=== PATIENT | male | born 1970 | race Caucasian/White ===

== ENCOUNTER 2016-07-15 22:07 | Emergency (ER) | payer BC, MEDICAID ==
[2016-07-15] MEDS ORDERED: KETOROLAC TROMETHAMINE 30 MG/ML VIAL IV ONE (23:39)
[2016-07-15] MEDS ORDERED: KETOROLAC TROMETHAMINE 30 MG/ML VIAL ONE (23:40)
--- NOTE | 2016-07-15 23:44 | ERNOTE ---
ER Male HPI Stated Complaint: TESTICULAR SWELLING/PAIN ER Male: testicular pain Time Seen by Provider: 07/15/16 23:28 Source: patient Exam Limitations: no limitations Immunizations: IMMUNIZATION HX Immunizations Up to Date Yes History of Influenza Vaccine No Hx Pneumococcal Vaccination Yes Allergies/Adverse Reactions: Allergies sulfacetamide Allergy (Severe, Verified 07/15/16 22:27) convulsions amoxicillin trihydrate [From Augmentin] Allergy (Mild, Verified 07/15/16 22:27) Vomiting benzoin Allergy (Mild, Verified 07/15/16 22:27) Hives potassium clavulanate [From Augmentin] Allergy (Mild, Verified 07/15/16 22:27) Vomiting cephalexin [Cephalexin] Adverse Reaction (Mild, Verified 07/15/16 22:27) rash clindamycin HCl [From Cleocin] Adverse Reaction (Mild, Verified 07/15/16 22:27) rash levofloxacin [From Levaquin] Adverse Reaction (Mild, Verified 07/15/16 22:27) rash Home Medications: HOME MEDICATIONS Venlafaxine HCl 150 mg PO HS 06/25/12 [Last Taken 12/11/13] rOPINIRole HCL [Requip] 0.5 mg PO HS 06/25/12 [Last Taken 12/11/13] Ascorbic Acid [Vitamin C] 500 mg PO DAILY 08/15/12 [Last Taken 12/11/13] Aspirin [Aspirin Enteric Coated] 81 mg PO DAILY #0 tablet. 08/18/13 [Last Taken 12/11/13] Cholecalciferol [Vitamin D] 1,000 unit PO DAILY 03/08/14 [Last Taken Unknown] Rosuvastatin Calcium [Crestor] 40 mg PO DAILY 04/06/14 [Last Taken Unknown] Diltiazem HCl [Cardizem Cd] 180 mg PO DAILY 10/04/15 [Last Taken Unknown] Clopidogrel Bisulfate [Plavix] 75 mg PO DAILY 11/10/15 [Last Taken Unknown] Nitroglycerin 0.4 mg SL PRN 11/10/15 [Last Taken Unknown] Acetaminophen [Tylenol] 1,000 mg PO QID PRN 07/15/16 [Last Taken 07/15/16 19:30] Azithromycin [Zithromax] 250 mg PO DAILY 07/15/16 [Last Taken Unknown] Enalapril Maleate [Vasotec] 5 mg PO 07/15/16 [Last Taken Unknown] Doxycycline Hyclate [Vibratab] 100 mg PO BID #20 tablet 07/16/16 [Last Taken Unknown] - History of Present Illness Narrative: Pt states he has had increasing right testicle pain for 2-3 days. He has previously had necrotizing fascitis in his groin and was concerned about this. He called his physician at the [facility] and has an appointment with them this week and was told if he had increasing pain or swelling he should be seen in the ED. Timing: Present: getting worse Quality: Present: moderate Onset Location: Present: scrotal - right Radiation: Present: suprapubic Activities at Onset: Present: none Prior Abdominal Problems: Present: similar symptoms Modifying Factors - (Improves): Present: analgesics - minimally Modifying Factors - (Worsens): Present: movement, palpation Review of Systems - Review of Systems Constitutional: Absent: recent illness EYE: Present: no symptoms reported ENT: Present: no symptoms reported Respiratory: Present: no symptoms reported Cardiology: Present: no symptoms reported Gastrointestinal/Abdominal: Present: See HPI, abdominal pain Genitourinary: Present: See HPI, pain Musculoskeletal: Present: no symptoms reported Skin: Present: no symptoms reported. Absent: rash Neurological: Present: no symptoms reported Endocrine: Present: no symptoms reported Hematologic/Lymphatic: Present: no symptoms reported Psych: Present: no symptoms reported - Patient's Past Medical History Patient History - Medical: Anxiety, Diabetes Type 2, Other Patient History - Cardiac/Respiratory: Coronary Heart Disease, Hypertension, Myocardial Infarction Patient History - Cancer: No Hx of Cancer Patient History - Surgical Procedures: Appendectomy, Cholecystectomy, Colonoscopy, Cardiac stent, Other - Family History Father Family History - Medical: Family History - Cardiac/Respiratory: Myocardial Infarction Mother Family History - Medical: No pertinent hx Family History - Cardiac/Respiratory: No pertinent hx - Social History Living Situations: home Smoking Status: Never smoker Alcohol Use: none Drug Use: none Physical Exam - Physical Exam General Appearance: Present: wd/wn, alert, no apparent distress Respiratory: Present: no respiratory distress, no accessory muscle use Gastrointestinal/Abdominal: Present: normal bowel sounds, tenderness - suprapubic. Absent: guarding, rebound Male Genitals Exam: Present: epididymal tenderness, other - mild erythema to the skin at the base of the penis, topical cream present. Absent: erythema - no obvious swelling Extremity Exam: Present: normal inspection Neurological Exam: Present: alert, oriented, normal mood/affect, no motor/ sensory deficits Skin Exam: Present: skin rash - base of the penis Lymphatic Exam: Absent: inguinal node (R), inguinal node (L) ED Progress - Results and Orders Patient's Lab Results:: I have reviewed the patient's lab results. Results and Orders: Laboratory Tests 07/15/16 07/15/16 07/15/16 23:45 23:45 23:45 WBC 7.0 Hgb 13.6 Hct 40.3 L Plt Count 237 ESR 14 H C-Reactive Prot, Quant Less than 0.2 Urine Color Urine Appearance Urine pH Ur Specific Marshall Urine Protein Urine Glucose (UA) Urine Ketones Urine Blood Urine Nitrate Urine Bilirubin Urine Urobilinogen Ur Leukocyte Esterase Urine RBC Urine WBC Ur Epithelial Cells Urine Bacteria 07/15/16 23:45 WBC Hgb Hct Plt Count ESR C-Reactive Prot, Quant Urine Color Yellow Urine Appearance Clear Urine pH 6.0 Ur Specific Marshall >=1.030 Urine Protein Negative Urine Glucose (UA) >=1000 H Urine Ketones Negative Urine Blood Negative Urine Nitrate Negative Urine Bilirubin Negative Urine Urobilinogen Normal Ur Leukocyte Esterase Negative Urine RBC None seen Urine WBC None seen Ur Epithelial Cells None seen Urine Bacteria None seen - Vital Signs Patient's Vital Signs:: I have reviewed the patient's vital signs. Vital Signs: Vital Signs 07/15/16 22:14 Temperature 36.8 C Pulse Rate 85 Respiratory 18 Rate Blood Pressure 117/73 O2 Sat by Pulse 96 Oximetry - CT/Ultrasound CT/Ultrasound Narrative: Right epididymal cyst. No torsion or other abnormalities. left testicle normal - Progress/Reassessment Chief Complaint: Genitourinary Problem Progress:: Improved Departure Clinical Impression: Epididymitis - Departure Disposition: Home self-care Condition: Good Instructions: Epididymitis Referrals: Med Henao MD [Primary Care Provider] - Prescriptions: Doxycycline Hyclate [Vibratab] 100 mg PO BID #20 tablet
[2016-07-15 23:50] LABS: Hematocrit 40.3 % (42.0-52.0); Hemoglobin 13.6 gm/dL (13.5-18.0); Mean Cell Volume 86.9 fl (78-100); Mean Corpuscular Hemoglobin 29.3 pg (27-31); Mean Corpuscular Hgb Conc 33.7 g/dl (32-36); Mean Platelet Volume 8.7 fl (6.0-9.5); Neutrophil # 4.1 K/mm3 (1.3-6.0); Neutrophil % 58.7 % (42-75.0); Platelet Count 237 K/mm3 (150-450); Red Blood Count 4.64 M/mm3 (4.7-6.0); Red Cell Distribution Width 12.9 % (11.5-14.0)
[2016-07-15 23:54] LABS: Urine Bilirubin Negative (NEGATIVE); Urine Blood Negative /ul (NEGATIVE); Urine Ketone Negative (NEGATIVE); Urine Nitrite Negative (NEGATIVE); Urine Protein Negative (NEGATIVE); Urine Specific Gravity >=1.030 SP.GR. (1.005-1.030); Urine Urobilinogen Normal (NORMAL)
[2016-07-16 00:05] LABS: Urine Appearance Clear; Urine Bacteria None Seen; Urine Color Yellow; Urine RBC None Seen /hpf (0-5); Urine WBC None Seen /hpf (0-5)
[2016-07-16] MEDS ORDERED: PROMETHAZINE HCL 12.5 MG in DEXTROSE 5 % IN WATER 50 ML IV ONE ×2 (01:14)
[2016-07-16] MEDS ORDERED: NALBUPHINE HCL 20 MG/ML AMPUL IV ONE (01:14)
[2016-07-16] MEDS ORDERED: NALBUPHINE HCL 20 MG/ML AMPUL ONE (01:17)
[2016-07-16] MEDS ORDERED: DEXTROSE 5% IV ONE ×2 (03:06)
[2016-07-16] MEDS ORDERED: WATER IV ONE ×2 (03:06)
[2016-07-16] MEDS ORDERED: CEFTRIAXONE SODIUM IV ONE ×2 (03:06)
[2016-07-16 03:51] VITALS: BP 126/69
== END 2016-07-16 03:49 | disposition home or self-care (01) ==
LOC: ER 22:07
DX: N45.1 Epididymitis (principal)

== ENCOUNTER 2016-12-17 12:40 | Emergency (ER) | payer BC, MEDICAID ==
[2016-12-17] MEDS ORDERED: MORPHINE SULFATE 4 MG/ML SYRG IM ONE (12:55)
[2016-12-17] MEDS ORDERED: MORPHINE SULFATE 4 MG/ML SYRG ONE (13:08)
[2016-12-17 13:10] LABS: Hematocrit 45.2 % (42.0-52.0); Hemoglobin 15.4 gm/dL (13.5-18.0); Mean Cell Volume 85.8 fl (78-100); Mean Corpuscular Hemoglobin 29.2 pg (27-31); Mean Corpuscular Hgb Conc 34.1 g/dl (32-36); Mean Platelet Volume 8.8 fl (6.0-9.5); Neutrophil # 6.1 K/mm3 (1.3-6.0); Neutrophil % 71.3 % (42-75.0); Platelet Count 242 K/mm3 (150-450); Red Blood Count 5.27 M/mm3 (4.7-6.0); Red Cell Distribution Width 13.7 % (11.5-14.0); White Blood Count 8.6 K/mm3 (4.0-10.5)
[2016-12-17 13:12] LABS: Urine Bilirubin Negative (NEGATIVE); Urine Blood Negative /ul (NEGATIVE); Urine Ketone Negative (NEGATIVE); Urine Nitrite Negative (NEGATIVE); Urine Protein Negative (NEGATIVE); Urine Specific Gravity >=1.030 SP.GR. (1.005-1.030); Urine Urobilinogen Normal (NORMAL); Urine pH 5.5 pH (5.0-7.0)
[2016-12-17] MEDS ORDERED: HYDROmorphone HCL 1 MG/ML DISP.SYRIN IM ONE ×2 (13:15→14:48)
[2016-12-17] MEDS ORDERED: HYDROmorphone HCL 1 MG/ML DISP.SYRIN ONE ×2 (13:17→14:59)
[2016-12-17 13:22] LABS: Urine Appearance Cloudy; Urine Color Yellow
[2016-12-17 13:23] LABS: Urine Bacteria None Seen; Urine RBC None Seen /hpf (0-5); Urine WBC None Seen /hpf (0-5)
[2016-12-17 13:36] LABS: Albumin * 3.8 gm/dl (3.4-5.0); Anion Gap 12.8 mmol/L (6.8-13.8); BUN/Creatinine Ratio 15.9 (9.0-21.6); Bilirubin, Total 0.5 mg/dL (0.0-1.1); Calcium * 9.2 mg/dL (7.9-10.9); Carbon Dioxide 25.5 mmol/L (24-32.6); Potassium 4.3 mmol/L (3.4-4.6); Total Protein 7.3 gm/dL (6.2-8.2)
--- OUTSIDE RECORDS SUMMARY | 2016-12-17 14:01 | XMS REPORT | Continuity of Care Document ---
:1970 Demographics Address [address] [place] [address] Home Phone [phone] Preferred Language Unknown Marital Status Unknown Yazidism Affiliation Unknown Race Unknown Ethnic Group Unknown Author Organization [employer] [place] [address] Care Team Providers Name Role Phone Unavailable Primary Care Provider Unavailable Source Comments This disclosure is being made pursuant to the [employer] program and maynot contain all information available regarding this patient.[employer] Active Allergies and Adverse Reactions Not on File Current Medications Be aware that medications may not be up to date as of this document. Alwaysverify current medications with the patient. Not on file Active Problems Not on file Social History Tobacco Use Types Packs/Day Years Used Date Never Assessed Plan of Care Health Maintenance Due Date Last Done Comments Retired-Pertussis Vaccine Adult 01/27/1987 Retired-Tetanus Vaccine Adult 01/27/1987 Retired-INFLUENZA VACCINE 03/07/2015 Results from Last 3 Months Not on file
--- OUTSIDE RECORDS SUMMARY | 2016-12-17 14:02 | XMS REPORT | Continuity of Care Document ---
:1970 Author Organization [facility] ([facility]) Address [address] [place] [address] Phone [phone] Care Team Providers Name Role Phone Med Bird Primary Care Provider [phone] Source Comments This disclosure is being made pursuant to the Care Everywhere program, applicable federal and state laws, and may not contain all informaitonavailable regarding this patient.[facility] ([facility]) Active Allergies and Adverse Reactions Allergen Noted Date Severity Reactions Comments Amoxicillin-Pot Clavulanate 07/17/2016 Nausea & Vomiting Benzoin 02/14/2010 OTHER swelling Cephalexin Urticaria (Hives) Clindamycin Urticaria (Hives) Levofloxacin Urticaria (Hives) Lisinopril 04/25/2016 OTHER Sulfadoxine Seizure Mcdade Balsam Urticaria (Hives) Current Medications Prescription Sig. Disp. Refills Start Date End Date Status rosuvastatin (CRESTOR) Take 40 mg by mouth Active 40 mg tablet at bedtime. venlafaxine 100 mg Take 100 mg by mouth Active tablet at bedtime. rOPINIRole 0.5 mg Take 0.5 mg by mouth Active tablet at bedtime. ascorbic acid (VITAMIN Take 500 mg by mouth Active C) 500 mg tablet daily. aspirin 81 mg chewable Take 81 mg by mouth Active tablet daily. sennosides 8.6 mg Take 1-2 Tabs by 30 Tab 2 07/31/2013 Active tablet mouth 2 times daily as needed. Indications: CONSTIPATION enalapril 10 mg tablet Take 10 mg by mouth Active daily. nitroglycerin 0.[address] 0.6 mg under Active tablet the tongue every 5 minutes as needed. cholecalciferol Take 1 Tab by mouth 30 Tab 0 02/11/2014 Active (VITAMIN D3) 400 unit daily. Indications: tablet prevention of osteopenia while on steroid CLOPIDOGREL BISULFATE Active (PLAVIX PO) diltiaZEM (CARDIZEM CD) Take 360 mg by mouth Active 360 mg XR capsule daily. Active Problems Problem Noted Date Morbid obesity 09/12/2014 Hematuria 02/18/2014 Abdominal pain, other specified site 02/16/2014 Overview: Hypogastric Rash 02/07/2014 DM type 2 (diabetes mellitus, type 2) 07/31/2013 Vitamin D deficiency 07/30/2013 Steroid-induced hyperglycemia 05/14/2013 Orchitis and epididymitis 05/13/2013 Postoperative pain 03/10/2013 Recurrent ventral hernia 01/20/2013 Constipation 12/06/2012 AZALIA on CPAP 08/18/2012 Soft tissue mass 04/29/2012 HTN (hypertension) 07/18/2011 Encounter for long-term (current) use of other medications 05/20/2011 Encounter for medication monitoring 05/20/2011 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 Pathology from perineal excision (10/2002) revealed eosinophilic cellulitis. -06/2006 hospitalized for lower abdominal/groin/lower extremity cellulitis, which did not improve with antibiotics. Skin bx 07/2006 revealed eosinophilic cellulitis. Treated successfully with corticosteroids. -09/2006 recurrent flare following trauma to L thigh. Bx revealed eosinophilic cellulitis. Treated with prednisone and initiated on dapsone 25 mg daily. No improvement therefore hospitalized and treat ed with prednisone 80 mg, antihistamines, and dapsone dose increased to 100 mg daily. Work up included serum cytokine assessment, which per report revealed elevation in IL-4, but no elevation in IL-5. [id number] alpha fusion gene rearrangement was negative. -Readmitted later that month for flare. Started on imatinib. -Readmitted 10/2006 for flare attributed to suboptimal Gleevec dosing (taking medication on a weekly basis rather than daily). Gleevec restarted on a daily basis, along with topical corticosteroids. E GD negative for eosinophilic esophagitis or gastritis. -Recurrent flare 11/2006. Bx consistent with eosinophilic cellulitis. Switched to cyclosporin (200 mg q AM, 100 mg q PM). Colonoscopy and bone marrow biopsy were done and unrevealing. -He was subsequently evaluated at the [facility]. Unclear if cyclosporin was discontinued following an AR in 2006. Patient indicates that he had an AR while on imatinib although this is not corroborated in note. -No flare until 07/2010 when hospitalized locally. Subsequently had flares in September and December 2010 treated with steroids as an inpatient. Started on tacrolimus 0.01mg/kg/day divided bid (0.5mg bid). Recurrent flare and admission 04/29-04/06. - 05/2011 tacrolimus increased to 0.02mg/kg/day (1mg BID) - Allergy clinic visit on 04/06/2013: Last flare up in December 2012. No flare ups since then. Continues on Tacrolimus 2 mg PO twice daily. 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 Groin pain 11/26/2012 01/20/2013 Cough 08/17/2012 01/20/2013 Biliary dyskinesia 02/11/2012 01/20/2013 Biliary colic 02/08/2012 01/20/2013 Rash and other nonspecific skin eruption 07/04/2006 10/30/2010 Abdominal pain, unspecified site 04/19/2006 10/30/2010 Immunizations Name Dates Previously Given Next Due Influenza, unspecified 05/07/2010,09/30/2004 Pneumococcal, unspecified 08/07/2010 Social History Tobacco Use Types Packs/Day Years Used Date Never Smoker Smokeless Tobacco: Never Used Tobacco Cessation:Counseling Given: Yes Comments: Alcohol Use Drinks/Week oz/Week Comments No Last Filed Vital Signs Vital Sign Reading Time Taken Blood Pressure 119/74 08/09/2016 1:32 PM [employer] Pulse 80 08/09/2016 1:32 PM [employer] Temperature 35.9 C (96.6 F) 08/09/2016 1:32 PM [employer] Respiratory Rate 16 07/26/2016 9:03 AM [employer] Height 1.727 m (5' 8") 07/26/2016 9:03 AM [employer] Weight 121.2 kg (267 lb 3.2 oz) 07/26/2016 9:03 AM [employer] Body Mass Index 40.64 07/26/2016 9:03 AM [employer] Oxygen Saturation 94% 09/12/2014 3:32 PM CDT Plan of Care Date Type Specialty Providers Description 12/23/2016 Appointment Urology Kellen Payan MD Subj: Appointment [address] [place] [address] [phone] (Fax) 01/30/2017 Wait List Srg Trauma 01/30/2017 Appointment Srg Trauma Default, Other Billg - Defo [address] [place] [address] [phone] (Fax) Subj: Appointment Provider, Srg Hernia Scheduled Health Maintenance Due Date Last Done Comments Hepatitis B Vaccine (1 of 3 - 1970 Primary Series) Tdap Vaccine 01/27/1979 DIABETIC: Microalbumin 01/27/1986 MMR Vaccine 01/27/1986 Td Vaccine 01/27/1986 Pneumococcal Vaccine ( of 01/27/1987 - PPSV23) DIABETIC: Cholesterol 11/27/2007 11/26/2006, 11/24/2006 Diabetic: Hdl 11/27/2007 11/26/2006, 11/24/2006 Diabetic: Ldl 11/27/2007 11/26/2006, 11/24/2006 DIABETIC: Triglycerides 11/27/2007 11/26/2006, 11/24/2006 DIABETIC: Foot Exam 07/31/2013 DIABETIC: Retinal Eye Exam 07/31/2013 DIABETIC: Hemoglobin A1C 08/11/2014 02/08/2014, Additional history exists 07/30/2013, 08/20/2012 Influenza Vaccine: Seasonal 02/04/2017 05/07/2010, (Season Ended) 2004 Results from Last 3 Months Not on file
[2016-12-17] MEDS ORDERED: NORMAL SALINE 1,000 ML IV ONE (16:58)
--- NOTE | 2016-12-17 17:11 | ERNOTE ---
ER Male HPI Date of Service: 12/17/16 Stated Complaint: RIGHT TESTICLE PAIN Time Seen by Provider: 12/17/16 12:47 Source: patient Exam Limitations: no limitations Immunizations: IMMUNIZATION HX Immunizations Up to Date Yes History of Influenza Vaccine No Hx Pneumococcal Vaccination Yes Allergies/Adverse Reactions: Allergies sulfacetamide Allergy (Severe, Verified 12/17/16 12:46) convulsions amoxicillin trihydrate [From Augmentin] Allergy (Mild, Verified 12/17/16 12:46) Vomiting benzoin Allergy (Mild, Verified 12/17/16 12:46) Hives potassium clavulanate [From Augmentin] Allergy (Mild, Verified 12/17/16 12:46) Vomiting cephalexin [Cephalexin] Adverse Reaction (Mild, Verified 12/17/16 12:46) rash clindamycin HCl [From Cleocin] Adverse Reaction (Mild, Verified 12/17/16 12:46) rash levofloxacin [From Levaquin] Adverse Reaction (Mild, Verified 12/17/16 12:46) rash Home Medications: HOME MEDICATIONS Venlafaxine HCl 150 mg PO HS 06/25/12 [Last Taken 12/11/13] rOPINIRole HCL [Requip] 0.5 mg PO HS 06/25/12 [Last Taken 12/11/13] Ascorbic Acid [Vitamin C] 500 mg PO DAILY 08/15/12 [Last Taken 12/11/13] Aspirin [Aspirin Enteric Coated] 81 mg PO DAILY #0 tablet. 08/18/13 [Last Taken 12/11/13] Cholecalciferol [Vitamin D] 1,000 unit PO DAILY 03/08/14 [Last Taken Unknown] Rosuvastatin Calcium [Crestor] 40 mg PO DAILY 04/06/14 [Last Taken Unknown] Diltiazem HCl [Cardizem Cd] 180 mg PO DAILY 10/04/15 [Last Taken Unknown] Nitroglycerin 0.4 mg SL PRN 11/10/15 [Last Taken Unknown] Acetaminophen [Tylenol] 1,000 mg PO QID PRN 07/15/16 [Last Taken 07/15/16 19:30] Enalapril Maleate [Vasotec] 5 mg PO DAILY 07/15/16 [Last Taken Unknown] - History of Present Illness Narrative: Patient presents to the ED for testicular pain on the right. he relates this pain began Friday and has progressively gotten worse. no fever. he has had pain extending into the right low abdomen. and flank with this. Nausea but no vomiting. No fever. No dysuria. Pain severe, worse with walking and touching the testicle. Has not seen anyone else for this. Timing: Present: getting worse Quality: Present: severe Onset Location: Present: RLQ, scrotal Radiation: Present: RLQ, right flank Activities at Onset: Present: none Modifying Factors - (Improves): Present: other - nothing Modifying Factors - (Worsens): Present: movement Associated Symptoms: Present: nausea, abdominal pain. Absent: fever/chills, vomiting, urinary frequency Prior Treatment: Absent: recently seen Review of Systems - Review of Systems Constitutional: Absent: fever Respiratory: Absent: shortness of breath Cardiology: Absent: chest pain Gastrointestinal/Abdominal: Present: See HPI Genitourinary: Present: See HPI All Other Systems: All systems neg except as marked - Patient's Past Medical History Patient History - Medical: Anxiety, Diabetes Type 2, Other Patient History - Cardiac/Respiratory: Hypertension, Hyperlipidemia, Myocardial Infarction Patient History - Cancer: No Hx of Cancer Patient History - Surgical Procedures: Appendectomy, Cholecystectomy, Colonoscopy, Cardiac stent, Other Patient History - Other: None - Family History Father Family History - Medical: Family History - Cardiac/Respiratory: Myocardial Infarction Mother Family History - Medical: No pertinent hx Family History - Cardiac/Respiratory: No pertinent hx - Social History Living Situations: home Abuse History: No History of abuse Psych History: Hx of Anxiety, Current tx/ever been on anti-depressants or anti- anxiety meds Alcohol Use: none Drug Use: none - Immunizations Immunizations Up to Date: Yes Hx Pneumococcal Vaccination: Yes History of Influenza Vaccine: No Physical Exam - Physical Exam General Appearance: Present: alert Eye Exam: Normal inspection: bilateral, PERRL: bilateral Ears, Nose, Throat: Present: normal ENT inspection Neck: Present: normal inspection Respiratory: Present: no respiratory distress, no accessory muscle use, lungs clear Cardiovascular/Chest: Present: regular rate, rhythm Gastrointestinal/Abdominal: Present: normal bowel sounds, soft, other - Mild right low abdominal tenderness. no peritoneal signs. No guarding or rebound. Male Genitals Exam: Present: other - Right testicle quite tender. Seems high riding. No redness. No warmth Back Exam: Present: CVA tenderness (R) Extremity Exam: Present: normal inspection Neurological Exam: Present: alert, normal mood/affect, no motor/sensory deficits Skin Exam: Absent: skin rash ED Progress - Results and Orders Patient's Lab Results:: I have reviewed the patient's lab results. - Vital Signs Patient's Vital Signs:: I have reviewed the patient's vital signs. Vital Signs: Vital Signs 12/17/16 12/17/16 12/17/16 12:44 13:31 14:12 Temperature 36.1 C L Pulse Rate 81 85 88 Respiratory 12 18 18 Rate Blood Pressure 137/73 121/80 120/71 O2 Sat by Pulse 94 95 96 Oximetry 12/17/16 12/17/16 12/17/16 14:36 15:04 15:59 Temperature Pulse Rate 80 80 77 Respiratory 18 18 18 Rate Blood Pressure 113/71 126/69 126/74 O2 Sat by Pulse 96 95 97 Oximetry - CT/Ultrasound CT/Ultrasound Narrative: I reviewed CT radiology report. I reviewed US report, possible incomplete torsion. - Progress/Reassessment Chief Complaint: Genitourinary Problem Progress Note-Subjective: 12/17/16 17:09 patient has urologist at [facility]. I spoke with Dr Stanley Urology at [facility] and discussed the case. He recommends patient be transferred to [facility] for Urological eval. D/W Dr Ledbetter also. Patient stable for transfer. EMS transfer. Pain meds en route. D/W Patient who is agreeable. Departure Clinical Impression: Testicular pain - Departure Disposition: [facility] Condition: Stable Referrals: Med Henao MD [Primary Care Provider] -
[2016-12-17 17:29] VITALS: BP 130/82
== END 2016-12-17 17:35 | disposition short-term general hospital (02) ==
LOC: ER 12:40
DX: N50.819 Testicular pain, unspecified (principal); F41.9 Anxiety disorder, unspecified; E11.9 Type 2 diabetes mellitus without complications; I10 Essential (primary) hypertension; E78.5 Hyperlipidemia, unspecified; I25.2 Old myocardial infarction

== ENCOUNTER 2017-01-29 17:46 | Emergency (ER) | payer BC, MEDICAID ==
--- OUTSIDE RECORDS SUMMARY | 2017-01-29 18:21 | XMS REPORT | Clinical Summary ---
:1970 Demographics Address [address] [place] [address] Home Phone Preferred Language Unknown Marital Status Unknown Islam Affiliation Unknown Race Unknown Ethnic Group Unknown Author Organization [employer] [place] [address] Care Team Providers Name Role Phone Unavailable Primary Care Provider Unavailable Source Comments This disclosure is being made pursuant to the [employer] program and maynot contain all information available regarding this patient.[employer] Allergies Not on File Current Medications Be aware that medications may not be up to date as of this document. Alwaysverify current medications with the patient. Not on file Active Problems Not on file Social History Tobacco Use Types Packs/Day Years Used Date Never Assessed Sex Assigned at Date Recorded Not on file Last Filed Vital Signs Not on file Plan of Treatment Health Maintenance Due Date Last Done Comments Retired-Pertussis Vaccine Adult 01/27/1987 Retired-Tetanus Vaccine Adult 01/27/1987 Retired-INFLUENZA VACCINE 03/07/2015 Results Not on filefrom Last 3 Months
[2017-01-29] MEDS ORDERED: NORMAL SALINE 1,000 ML IV ONE ×2 (18:24→20:40)
[2017-01-29] MEDS ORDERED: ONDANSETRON HCL/PF 2 MG/ML VIAL IV ONE ×2 (18:25→20:40)
[2017-01-29] MEDS ORDERED: HYDROmorphone HCL 1 MG/ML DISP.SYRIN IV ONE ×2 (18:25→19:30)
[2017-01-29 18:41] LABS: Hematocrit 48.1 % (42.0-52.0); Hemoglobin 16.2 gm/dL (13.5-18.0); Mean Cell Volume 86.2 fl (78-100); Mean Corpuscular Hgb Conc 33.7 g/dl (32-36); Mean Platelet Volume 8.7 fl (6.0-9.5); Neutrophil # 4.1 K/mm3 (1.3-6.0); Neutrophil % 69.4 % (42-75.0); Platelet Count 204 K/mm3 (150-450); Red Blood Count 5.58 M/mm3 (4.7-6.0); Red Cell Distribution Width 13.8 % (11.5-14.0); White Blood Count 5.9 K/mm3 (4.0-10.5)
[2017-01-29] MEDS ORDERED: ONDANSETRON HCL/PF 2 MG/ML VIAL ONE ×2 (18:43→20:38)
[2017-01-29] MEDS ORDERED: HYDROmorphone HCL 1 MG/ML DISP.SYRIN ONE ×2 (18:43→19:42)
[2017-01-29 18:54] LABS: Albumin * 3.8 gm/dl (3.4-5.0); Anion Gap 16.9 mmol/L (6.8-13.8); BUN/Creatinine Ratio 12.4 (9.0-21.6); Bilirubin, Total 0.7 mg/dL (0.0-1.1); Ca. Corrected For Albumin 8.5 mg/dL (8.4-10.2); Calcium * 8.7 mg/dL (7.9-10.9); Carbon Dioxide 23.8 mmol/L (24-32.6); Potassium 3.7 mmol/L (3.4-4.6); Total Protein 7.6 gm/dL (6.2-8.2)
--- NOTE | 2017-01-29 18:56 | ERNOTE ---
<Lei Nicole - Last Filed: 01/29/17 19:32> Abdominal HPI - Narrative Date of Service: 01/29/17 - General Chief Complaint: Abdominal Pain Time Seen by Provider: 01/29/17 18:14 Source: patient Exam Limitations: no limitations - Immun/Allergies/Home Medications Immunizatons: IMMUNIZATION HX Immunizations Up to Date Yes History of Influenza Vaccine No Hx Pneumococcal Vaccination Yes Allergies/Adverse Reactions: Allergies sulfacetamide Allergy (Severe, Verified 01/29/17 19:51) convulsions amoxicillin trihydrate [From Augmentin] Allergy (Mild, Verified 01/29/17 19:51) Vomiting benzoin Allergy (Mild, Verified 01/29/17 19:51) Hives potassium clavulanate [From Augmentin] Allergy (Mild, Verified 01/29/17 19:51) Vomiting cephalexin [Cephalexin] Adverse Reaction (Mild, Verified 01/29/17 19:51) rash clindamycin HCl [From Cleocin] Adverse Reaction (Mild, Verified 01/29/17 19:51) rash levofloxacin [From Levaquin] Adverse Reaction (Mild, Verified 01/29/17 19:51) rash Home Medications: HOME MEDICATIONS Venlafaxine HCl 150 mg PO HS 06/25/12 [Last Taken 12/11/13] rOPINIRole HCL [Requip] 0.5 mg PO HS 06/25/12 [Last Taken 12/11/13] Ascorbic Acid [Vitamin C] 500 mg PO DAILY 08/15/12 [Last Taken 12/11/13] Aspirin [Aspirin Enteric Coated] 81 mg PO DAILY #0 tablet. 08/18/13 [Last Taken 12/11/13] Cholecalciferol [Vitamin D] 1,000 unit PO DAILY 03/08/14 [Last Taken Unknown] Rosuvastatin Calcium [Crestor] 40 mg PO DAILY 04/06/14 [Last Taken Unknown] Diltiazem HCl [Cardizem Cd] 180 mg PO DAILY 10/04/15 [Last Taken Unknown] Nitroglycerin 0.4 mg SL PRN 11/10/15 [Last Taken Unknown] Acetaminophen [Tylenol] 1,000 mg PO QID PRN 07/15/16 [Last Taken 07/15/16 19:30] Enalapril Maleate [Vasotec] 5 mg PO DAILY 07/15/16 [Last Taken Unknown] Ondansetron HCl [Zofran] 1 - 2 tab PO Q8H PRN #10 tab 01/29/17 [Last Taken Unknown] - History of Present Illness Narrative: Patient presents to the ED for abdominal pain. He relates that he became ill last night around 7pm with mid abdominal pain, recurrent vomiting and watery diarrhea. He relates that the pain in his abdomen can be severe. He has vomited at least 5 times. No blood in stool or vomit. Granddaughter was only sick exposure. No CP or SOB. Fever at home. No radiation of pain. Timing: constant Quality: severe Activities at Onset: none Modifying Factors - (Improves): Present: other - nothing Modifying Factors - (Worsens): Present: other - nothing Associated Symptoms: Present: fever/chills. Absent: chest pain, diarrhea-gross blood, swelling/mass in abdomen Prior Treatment: Absent: recently seen Review of Systems - Review of Systems Constitutional: Absent: fever Respiratory: Absent: shortness of breath Cardiology: Absent: chest pain Gastrointestinal/Abdominal: Present: See HPI Genitourinary: Absent: dysuria Musculoskeletal: Present: no symptoms reported Skin: Absent: rash Neurological: Absent: weakness All Other Systems: All systems neg except as marked - Patient's Past Medical History Patient History - Medical: Anxiety, Diabetes Type 2, Other Patient History - Cardiac/Respiratory: Hypertension, Hyperlipidemia, Myocardial Infarction Patient History - Cancer: No Hx of Cancer Patient History - Surgical Procedures: Appendectomy, Cholecystectomy, Colonoscopy, Cardiac stent, Other Patient History - Other: None - Family History Father Family History - Medical: Family History - Cardiac/Respiratory: Myocardial Infarction Mother Family History - Medical: No pertinent hx Family History - Cardiac/Respiratory: No pertinent hx - Social History Living Situations: spouse Abuse History: No History of abuse Psych History: Hx of Anxiety, Current tx/ever been on anti-depressants or anti- anxiety meds Smoking Status: Never smoker Alcohol Use: none Drug Use: none - Immunizations Immunizations Up to Date: Yes Hx Pneumococcal Vaccination: Yes History of Influenza Vaccine: No Physical Exam - Physical Exam General Appearance: Present: alert, no apparent distress Head Exam: Present: normal inspection Eye Exam: Normal inspection: bilateral, PERRL: bilateral Ears, Nose, Throat: Present: dry mucous membranes Neck: Present: normal inspection Respiratory: Present: no respiratory distress, normal breath sounds, lungs clear Cardiovascular/Chest: Present: regular rate, rhythm, normal peripheral pulses Gastrointestinal/Abdominal: Present: normal bowel sounds, soft, tenderness, other - moderate mid abdominal tenderness. No rigidity Back Exam: Present: normal range of motion Extremity Exam: Present: normal inspection Neurological Exam: Present: alert, no motor/sensory deficits Skin Exam: Present: normal color, warm/dry ED Progress - Results and Orders Patient's Lab Results:: I have reviewed the patient's lab results. - Vital Signs Patient's Vital Signs:: I have reviewed the patient's vital signs. Vital Signs: Vital Signs 01/29/17 18:00 Temperature 36.8 C Pulse Rate 92 Respiratory 16 Rate Blood Pressure 135/87 O2 Sat by Pulse 98 Oximetry - X-Ray X-Ray #1 X-Ray: abdomen Interpretation: Reviewed by me X-ray Comments: No concurrent radiology reads. non-specific bowel gas pattern by my eval. - Progress/Reassessment Chief Complaint: Abdominal Pain Progress Note-Subjective: 01/29/17 19:[address] his pain [address] CT to r/o other causes. Likely gastroenteritis. Pt agreeable - Transfer of Care Physician Sign Out: Lei Nicole Receiving Physician: Jarett Ramírez Pending Results: CT/MRI results, Labs Additional Notes: Pending results Departure - Departure Clinical Impression: Gastroenteritis Vomiting Qualifiers: Vomiting type: unspecified Vomiting Intractability: non-intractable Nausea presence: with nausea Qualified Code(s): R11.2 - Nausea with vomiting, unspecified Abdominal pain Qualifiers: Abdominal location: generalized Qualified Code(s): R10.84 - Generalized abdominal pain Disposition: Home self-care Condition: Stable Instructions: Nausea, Adult, [id number], Diarrhea, Adult, [id number] Additional Instructions: clear liquids for 24 hours then slowly resume regular diet Referrals: Med Henao MD [Primary Care Provider] - Prescriptions: Ondansetron HCl [Zofran] 1 - 2 tab PO Q8H PRN #10 tab PRN Reason: Nausea <Jarett Ramírez - Last Filed: 01/29/17 23:04> Abdominal HPI - Immun/Allergies/Home Medications Immunizatons: IMMUNIZATION HX Immunizations Up to Date Yes History of Influenza Vaccine No Hx Pneumococcal Vaccination Yes ED Progress - Results and Orders Patient's Lab Results:: I have reviewed the patient's lab results. - Vital Signs Vital Signs: Vital Signs 01/29/17 01/29/17 01/29/17 18:00 19:46 20:40 Temperature 36.8 C Pulse Rate 92 93 118 H Respiratory 16 18 18 Rate Blood Pressure 135/87 129/78 135/90 O2 Sat by Pulse 98 98 96 Oximetry - CT/Ultrasound CT/Ultrasound Narrative: CT abdomen/ pelvis; IMPRESSION: No evidence of bowel obstruction. Scattered colonic air-fluid levels; correlate for loose stools. Additional findings and comments are as above. - Progress/Reassessment Progress:: Improved Progress Note-Subjective: 01/29/17 21:00 Pt vomited soon after consuming the last of his oral contrast. I decided to continue with the CT scan as scheduled without further contrast. 01/29/17 21:50 pt complains of continued pain and IM bentyl was ordered for cramping. Pt given ice chips. CT results discussed. 01/29/17 21:51 01/29/17 22:53 pt drank gatoraid without any difficulty. Ready for discharge
[2017-01-29] MEDS ORDERED: DIATRIZOATE MEGLUMINE, SODIUM 30 ML BTL PO ONE (19:31)
[2017-01-29] MEDS ORDERED: DIATRIZOATE MEGLUMINE, SODIUM 30 ML BTL ONE (19:34)
[2017-01-29 20:16] LABS: Urine Bilirubin Negative (NEGATIVE); Urine Blood Negative /ul (NEGATIVE); Urine Ketone Negative (NEGATIVE); Urine Nitrite Negative (NEGATIVE); Urine Protein Negative (NEGATIVE); Urine Urobilinogen Normal (NORMAL); Urine pH 5.5 pH (5.0-7.0)
[2017-01-29 20:24] LABS: Urine Appearance Clear; Urine Bacteria TRACE; Urine Color Yellow; Urine RBC None Seen /hpf (0-5); Urine WBC TRACE /hpf (0-5)
[2017-01-29] MEDS ORDERED: DICYCLOMINE HCL 10 MG/ML AMPUL IM ONE ×2 (21:50→21:52)
[2017-01-29 22:54] VITALS: BP 131/73
[2017-01-29] MEDS ORDERED: ONDANSETRON 4 MG TAB.RAPDIS PO ONE (22:54)
[2017-01-29] MEDS ORDERED: ONDANSETRON 4 MG TAB.RAPDIS ONE (22:56)
== END 2017-01-29 23:01 | disposition home or self-care (01) ==
LOC: ER 17:46
DX: K52.9 Noninfective gastroenteritis and colitis, unspecified (principal); R11.2 Nausea with vomiting, unspecified; R10.84 Generalized abdominal pain; E78.5 Hyperlipidemia, unspecified; F41.9 Anxiety disorder, unspecified; I10 Essential (primary) hypertension; Z95.5 Presence of coronary angioplasty implant and graft
CPT/HCPCS: 36415; 74020; 74177; 80053; 81001; 83690; 85025; 96372; 96374; 96375; 99284; J2405

== ENCOUNTER 2017-02-18 19:25 | Observation (INO) | payer BC, MEDICAID ==
[2017-02-18] MEDS ORDERED: NITROGLYCERIN 0.4 MG/TAB BTL SL ONE ×3 (19:48→20:43)
[2017-02-18 19:56] LABS: Hematocrit 39.9 % (42.0-52.0); Hemoglobin 13.4 gm/dL (13.5-18.0); Mean Cell Volume 87.1 fl (78-100); Mean Corpuscular Hemoglobin 29.3 pg (27-31); Mean Corpuscular Hgb Conc 33.6 g/dl (32-36); Mean Platelet Volume 8.9 fl (6.0-9.5); Neutrophil # 4.7 K/mm3 (1.3-6.0); Neutrophil % 63.5 % (42-75.0); Platelet Count 215 K/mm3 (150-450); Red Blood Count 4.58 M/mm3 (4.7-6.0); Red Cell Distribution Width 13.7 % (11.5-14.0); White Blood Count 7.4 K/mm3 (4.0-10.5)
--- OUTSIDE RECORDS SUMMARY | 2017-02-18 20:03 | XMS REPORT | Clinical Summary ---
:1970 Demographics Address [address] [place] [address] Home Phone Preferred Language Unknown Marital Status Unknown Mandaeism Affiliation Unknown Race Unknown Ethnic Group Unknown Author Organization [employer] [place] [address] Care Team Providers Name Role Phone Unavailable Primary Care Provider Unavailable Source Comments This disclosure is being made pursuant to the [employer] program and maynot contain all information available regarding this patient.[employer] Allergies Not on File Current Medications Be [...] Health Maintenance Due Date Last Done Comments Tetanus/Pertussis (1 - Tdap) 01/27/1987 INFLUENZA IMMUNIZATION (#1) 2017 Results Not on filefrom Last 3 Months
[2017-02-18 20:08] LABS: INR 0.96 INR (0.90-1.10); Partial Thrombolplastin Time 24.4 Seconds (24-32)
[2017-02-18 20:19] LABS: ALT 45 U/L (19-67); AST 23 U/L (0-48); Albumin * 3.4 gm/dl (3.4-5.0); Alkaline Phosphatase * 111 U/L (50-170); Anion Gap 17.4 mmol/L (6.8-13.8); BUN/Creatinine Ratio 16.3 (9.0-21.6); Bilirubin, Total 0.4 mg/dL (0.0-1.1); Blood Urea Nitrogen 15 mg/dL (6-23); Ca. Corrected For Albumin 8.9 mg/dL (8.4-10.2); Calcium * 8.7 mg/dL (7.9-10.9); Carbon Dioxide 21.6 mmol/L (24-32.6); Chloride 102 mmol/L (97-106); Glucose * 240 mg/dL (70-110); Magnesium 1.7 mg/dL (1.2-2.8); Sodium 137 mmol/L (132-142); Total Protein 6.6 gm/dL (6.2-8.2); Troponin I Less than 0.017 ng/ml (0.00-0.10)
--- NOTE | 2017-02-18 20:22 | ERNOTE ---
Chest Pain/Cardiac HPI Chief Complaint: Chest Pain Time Seen by Provider: 02/18/17 19:58 Source: patient Exam Limitations: no limitations Immunizations: IMMUNIZATION HX Immunizations Up to Date Yes History of Influenza Vaccine Yes Hx Pneumococcal Vaccination Yes Allergies/Adverse Reactions: Allergies sulfacetamide Allergy (Severe, Verified 02/19/17 00:18) convulsions amoxicillin trihydrate [From Augmentin] Allergy (Mild, Verified 02/19/17 00:18) Vomiting benzoin Allergy (Mild, Verified 02/19/17 00:18) Hives potassium clavulanate [From Augmentin] Allergy (Mild, Verified 02/19/17 00:18) Vomiting Influenza Virus Vaccines Allergy (Verified 02/19/17 00:18) sulfamethoxazole [From Bactrim] Allergy (Verified 02/19/17 00:18) trimethoprim [From Bactrim] Allergy (Verified 02/19/17 00:18) cephalexin [Cephalexin] Adverse Reaction (Mild, Verified 02/19/17 00:18) rash clindamycin HCl [From Cleocin] Adverse Reaction (Mild, Verified 02/19/17 00:18) rash levofloxacin [From Levaquin] Adverse Reaction (Mild, Verified 02/19/17 00:18) rash Home Medications: HOME MEDICATIONS Venlafaxine HCl 100 mg PO HS 06/25/12 [Last Taken 02/17/17] rOPINIRole HCL [Requip] 0.5 mg PO HS 06/25/12 [Last Taken 02/17/17] Ascorbic Acid [Vitamin C] 500 mg PO DAILY 08/15/12 [Last Taken 02/19/17] Aspirin [Aspirin Enteric Coated] 81 mg PO DAILY #0 tablet. 08/18/13 [Last Taken 02/19/17] Cholecalciferol [Vitamin D] 1,000 unit PO DAILY 03/08/14 [Last Taken 02/19/17] Rosuvastatin Calcium [Crestor] 40 mg PO DAILY 04/06/14 [Last Taken 02/18/17] Diltiazem HCl [Cardizem Cd] 180 mg PO DAILY 10/04/15 [Last Taken 02/19/17] Nitroglycerin 0.4 mg SL PRN 11/10/15 [Last Taken Unknown] Acetaminophen [Tylenol] 1,000 mg PO QID PRN 07/15/16 [Last Taken 02/17/17] Enalapril Maleate [Vasotec] 5 mg PO DAILY 07/15/16 [Last Taken 02/19/17] Fenofibrate 160 mg PO DAILY 02/18/17 [Last Taken Unknown] Nortriptyline HCl [Pamelor] 25 mg PO HS 02/18/17 [Last Taken Unknown] Wheat Dextrin [Benefiber] 1 tbs PO BID PRN 02/18/17 [Last Taken Unknown] metFORMIN HCL [Metformin HCl ER] 500 mg PO BID 02/18/17 [Last Taken Unknown] Narrative: Pt states that 45 min prior to presentation he began to have substernal chest pain similar to pain he had with previous CT's. He could not find his nitro but took 3 additional 81 mg ASA as he had already taken one this AM as usual. He admits shortness of breath but no diaphoresis. Pain remains an 8 after one nitro in the ED. Timing: constant Severity/Quality: severe, sharp Location: substernal, central Chest Pain Radiation: no radiation Activities at Onset: none Modifying Factors - Improves: Present: rest - lying down helped a small amount Modifying Factors - Worsens: Present: other - activity Nitro Today/Relief: 0.4 mg x 1, provided by ED Aspirin Treatment Today: 81 mg x 4, provided at home Associated Symptoms: Present: headache, shortness of breath. Absent: diaphoresis, heartburn, nausea Prior Chest Pain/Cardiac Workup: Reports: heart attack - x2 , cardiac cath - x3 with most recent 15 months ago. 2 more stents placed at that time without CT. Prior CT 2002, 2006 Review of Systems - Review of Systems Constitutional: Absent: recent illness EYE: Present: no symptoms reported ENT: Present: no symptoms reported Respiratory: Present: shortness of breath. Absent: cough Cardiology: Present: See HPI Gastrointestinal/Abdominal: Absent: nausea Genitourinary: Present: no symptoms reported Musculoskeletal: Absent: back pain, muscle pain Skin: Present: no symptoms reported Neurological: Present: no symptoms reported Endocrine: Absent: excessive sweating, flushing Hematologic/Lymphatic: Present: no symptoms reported Psych: Present: no symptoms reported - Patient's Past Medical History Patient History - Medical: Anxiety, Diabetes Type 2, Other Patient History - Cardiac/Respiratory: Hypertension, Hyperlipidemia, Myocardial Infarction Patient History - Cancer: No Hx of Cancer Patient History - Surgical Procedures: Appendectomy, Cholecystectomy, Colonoscopy, Cardiac stent, Other Patient History - Other: None - Family History Father Family History - Medical: Family History - Cardiac/Respiratory: Myocardial Infarction Mother Family History - Medical: No pertinent hx Family History - Cardiac/Respiratory: No pertinent hx - Social History Living Situations: home Abuse History: No History of abuse Psych History: Hx of Anxiety, Current tx/ever been on anti-depressants or anti- anxiety meds Smoking Status: Never smoker Alcohol Use: none Drug Use: none - Immunizations Immunizations Up to Date: Yes Hx Pneumococcal Vaccination: Yes History of Influenza Vaccine: Yes Physical Exam - Physical Exam General Appearance: Present: wd/wn, alert, no apparent distress Head Exam: Present: normal inspection, no evidence of injury Eye Exam: Normal inspection: bilateral, PERRL: bilateral, EOMI: bilateral Ears, Nose, Throat: Present: normal ENT inspection Neck: Present: normal inspection, nontender Respiratory: Present: no respiratory distress, normal breath sounds, lungs clear Cardiovascular/Chest: Present: regular rate, rhythm, no murmur - but very distant heart sounds limit exam Gastrointestinal/Abdominal: Present: normal bowel sounds, nontender, nondistended, soft Extremity Exam: Present: normal inspection, non-tender, no edema Neurological Exam: Present: alert, oriented, normal mood/affect Skin Exam: Present: normal color, warm/dry Lymphatic Exam: Present: no adenopathy ED Progress - Results and Orders Patient's Lab Results:: I have reviewed the patient's lab results. Results and Orders: Laboratory Tests 02/18/17 02/18/17 02/18/17 19:55 19:55 19:55 WBC 7.4 Hgb 13.4 L Hct 39.9 L Plt Count 215 PT 10.0 INR (Anticoag Therapy) 0.96 PTT ([place]) 24.4 Sodium 137 Potassium 4.0 Chloride 102 Carbon Dioxide 21.6 L BUN 15 Creatinine 0.92 Random Glucose 240 H D Calcium 8.7 Magnesium 1.7 Total Bilirubin 0.4 AST 23 ALT 45 Alkaline Phosphatase 111 Troponin I Less than 0.017 Total Protein 6.6 Albumin 3.4 - Vital Signs Patient's Vital Signs:: I have reviewed the patient's vital signs. Vital Signs: Vital Signs 02/18/17 02/18/17 02/18/17 19:31 19:48 19:51 Temperature 36.7 C Pulse Rate 71 77 84 Respiratory 15 13 Rate Blood Pressure 114/64 114/65 107/60 O2 Sat by Pulse 96 95 Oximetry - EKG EKG: NSR, no ST T wave changes EKG read: Interp. by me - X-Ray X-Ray #1 X-Ray: chest Interpretation: Reviewed by me X-ray Comments: Findings: Diffuse hyperinflation of the lungs bilaterally with flattening of the hemidiaphragm. The lungs are clear bilaterally. There is no consolidation, pleural effusion or pneumothorax. Cardiac silhouette is enlarged but stable. The pulmonary vasculature are normal. The osseous structures demonstrate degenerative changes of the spine and shoulders. IMPRESSION: NO ACUTE CARDIOPULMONARY ABNORMALITY IDENTIFIED. Electronically signed by Ron Chew D.O.. - Progress/Reassessment Chief Complaint: Chest Pain Progress:: Improved Progress Note-Subjective: 02/18/17 23:31 Spoke with Graham KUMAR hospitalist. She agrees with observation admit. Departure - Departure Clinical Impression: Stented coronary artery Chest pain Qualifiers: Chest pain type: unspecified Qualified Code(s): R07.9 - Chest pain, unspecified CAD (coronary artery disease) Qualifiers: Coronary Disease-Associated Artery/Lesion type: [place] artery [place] vs. transplanted heart: [place] heart Associated angina: with unspecified angina Qualified Code(s): I25.119 - Atherosclerotic heart disease of [place] coronary artery with unspecified angina pectoris Diabetes mellitus Qualifiers: Diabetes mellitus type: type 2 Diabetes mellitus complication status: with hyperglycemia Diabetes mellitus alf insulin use: without termite renewal inspector use Qualified Code(s): E11.65 - Type 2 diabetes mellitus with hyperglycemia Disposition: [facility] Condition: Fair
[2017-02-18] MEDS ORDERED: SUCRALFATE 1 G/10 ML UDC PO ONE (20:49)
[2017-02-18] MEDS ORDERED: MAG HYDROX/ALUMINUM HYD/SIMETH 30 ML UDC PO ONE (20:49)
[2017-02-18] MEDS ORDERED: LIDOCAINE HCL 20 ML UDC PO ONE (20:49)
[2017-02-18] MEDS ORDERED: NITROGLYCERIN 1 INCH PACKET TD ONE ×2 (21:10)
--- OUTSIDE RECORDS SUMMARY | 2017-02-18 23:40 | XMS REPORT | Clinical Summary ---
:1970 Demographics Address [address] [place] [address] Home Phone Preferred Language Unknown Marital Status Unknown Denominational Affiliation Unknown Race Unknown Ethnic Group Unknown Author Organization [email or web address] [place] [address] Care Team Providers Name Role Phone Unavailable Primary Care Provider Unavailable Source Comments This disclosure is being made pursuant to the [employer] program and maynot contain all information available regarding this patient.[email or web address] Allergies Not on File Current Medications Be [...]
[2017-02-19] MEDS ORDERED: Wheat Dextrin [Benefiber] PO PRN (01:21)
[2017-02-19] MEDS ORDERED: ACETAMINOPHEN 325 MG TABLET PO PRN (01:21)
--- NOTE | 2017-02-19 01:43 | HP ---
<Graham Ellis - Last Filed: 02/19/17 02:04> Chief Complaint - Chief Complaint Date of Service: 02/19/17 Time of Service: 23:40 Chief Complaint: chest pain History of Present Illness: 47 years old male adm to the hospital from ER with reports of sub-sternal chest pain. Pt stated while at home after dinner approximately 7pm, he had sharp non radiating pain in the chest with associated s/s shortness of breath and headache. He denies diaphoresis, nausea, vomiting or palpitation. pt stated the pain improved while in ER. while at home he took aspirin 81mg x3. In ER was given nitro tabs x3 and 1/2 inches nitro paste. Despite its usage pt report chest pain of 3-10 on scale.On adm EKG- was NSR, initial trop negative. Pt stated he also have an headache x 3 weeks. He his schedule for out-pt MRI head. PMH significant for AZ x2 with 4 stents placed, hypertension, diabetes and obesity. will adm overnight for observation. - Patient's Past Medical History Patient History - Medical: Anxiety, Diabetes Type 2, Headache, Obesity, Other Patient History - Cardiac/Respiratory: Hypertension, Hyperlipidemia, Myocardial Infarction Patient History - Cancer: No Hx of Cancer Patient History - Surgical Procedures: Appendectomy, Cholecystectomy, Colonoscopy, Cardiac stent, Other Patient History - Other: None - Family History Father Family History - Medical: Family History - Cardiac/Respiratory: Myocardial Infarction Mother Family History - Medical: No pertinent hx Family History - Cardiac/Respiratory: No pertinent hx - Social History Living Situations: home Abuse History: No History of abuse Psych History: Hx of Anxiety, Current tx/ever been on anti-depressants or anti- anxiety meds Smoking Status: Never smoker Have you smoked in the past 12 months: No Do you dip or chew tobacco: No Alcohol Use: none Drug Use: none - Immunizations Immunizations Up to Date: Yes Hx Pneumococcal Vaccination: Yes History of Influenza Vaccine: Yes Review Of Systems (GEN) - Review of Systems Generalized/Overall Review: Present: No Symptoms Reported Respiratory: Present: No Symptoms Reported Cardiac: Present: Chest Pain Abdominal: Present: No Symptoms Reported Genitourinary: Present: No Symptoms Reported Musculoskeletal: Present: No Symptoms Reported Neurological: Present: Headache Skin: Present: No Symptoms Reported Immunizations: IMMUNIZATION HX Immunizations Up to Date Yes History of Influenza Vaccine Yes Hx Pneumococcal Vaccination Yes Allergies/Adverse Reactions: Allergies Allergy/AdvReac Type Severity Reaction Status Date / Time sulfacetamide Allergy Severe convulsions Verified 02/19/17 00:18 amoxicillin trihydrate Allergy Mild Vomiting Verified 02/19/17 00:18 [From Augmentin] benzoin Allergy Mild Hives Verified 02/19/17 00:18 potassium clavulanate Allergy Mild Vomiting Verified 02/19/17 00:18 [From Augmentin] Influenza Virus Vaccines Allergy Verified 02/19/17 00:18 sulfamethoxazole Allergy Verified 02/19/17 00:18 [From Bactrim] trimethoprim [From Bactrim] Allergy Verified 02/19/17 00:18 cephalexin [Cephalexin] AdvReac Mild rash Verified 02/19/17 00:18 clindamycin HCl AdvReac Mild rash Verified 02/19/17 00:18 [From Cleocin] levofloxacin [From Levaquin] AdvReac Mild rash Verified 02/19/17 00:18 Home Medications: HOME MEDICATIONS Venlafaxine HCl 100 mg PO HS 06/25/12 [Last Taken 02/17/17] rOPINIRole HCL [Requip] 0.5 mg PO HS 06/25/12 [Last Taken 02/17/17] Ascorbic Acid [Vitamin C] 500 mg PO DAILY 08/15/12 [Last Taken 02/19/17] Aspirin [Aspirin Enteric Coated] 81 mg PO DAILY #0 tablet. 08/18/13 [Last Taken 02/19/17] Cholecalciferol [Vitamin D] 1,000 unit PO DAILY 03/08/14 [Last Taken 02/19/17] Rosuvastatin Calcium [Crestor] 40 mg PO DAILY 04/06/14 [Last Taken 02/18/17] Diltiazem HCl [Cardizem Cd] 180 mg PO DAILY 10/04/15 [Last Taken 02/19/17] Nitroglycerin 0.4 mg SL PRN 11/10/15 [Last Taken Unknown] Acetaminophen [Tylenol] 1,000 mg PO QID PRN 07/15/16 [Last Taken 02/17/17] Enalapril Maleate [Vasotec] 5 mg PO DAILY 07/15/16 [Last Taken 02/19/17] Fenofibrate 160 mg PO DAILY 02/18/17 [Last Taken Unknown] Nortriptyline HCl [Pamelor] 25 mg PO HS 02/18/17 [Last Taken Unknown] Wheat Dextrin [Benefiber] 1 tbs PO BID PRN 02/18/17 [Last Taken Unknown] metFORMIN HCL [Metformin HCl ER] 500 mg PO BID 02/18/17 [Last Taken Unknown] Exam - Exam Vital Signs: Vital Signs - Last Taken Temp 36.6 C 02/19/17 00:25 Pulse 71 02/19/17 01:08 Resp 20 02/19/17 01:08 BP 109/63 02/19/17 00:25 Pulse Ox 97 02/19/17 01:08 Constitutional: Present: Alert, Oriented x3, Cooperative ENT Exam: Present: normal ENT inspection Eye Exam: bilateral eye: normal inspection Neck: Present: full range of motion Breasts: Present: Exam deferred Respiratory: Present: chest non-tender, normal breath sounds Cardiovascular/Chest: Present: normal peripheral pulses, no chest tenderness, no edema Peripheral Pulses: dorsalis-pedis (R): 3+, dorsalis-pedis (L): 3+ Abdomen: Present: Normal bowel sounds, soft, nontender, nondistended /Rectal: Present: Exam deferred Extremity: Present: normal range of motion, non-tender, normal inspection Skin Exam: Present: normal color Lymphatic: Present: no adenopathy Neurologic: Present: oriented x 3 Appearance: Present: appropriate appearance Eye contact: Present: cooperative, good eye contact Diagnostic Studies: Laboratory Results WBC 7.4 K/mm3 (4.0-10.5) 02/18/17 19:55 RBC 4.58 M/mm3 (4.7-6.0) L 02/18/17 19:55 Hgb 13.4 gm/dL (13.5-18.0) L 02/18/17 19:55 Hct 39.9 % (42.0-52.0) L 02/18/17 19:55 MCV 87.1 fl (78-100) 02/18/17 19:55 MCH 29.3 pg (27-31) 02/18/17 19:55 MCHC 33.6 g/dl (32-36) 02/18/17 19:55 RDW 13.7 % (11.5-14.0) 02/18/17 19:55 Plt Count 215 K/mm3 (150-450) 02/18/17 19:55 MPV 8.9 fl (6.0-9.5) 02/18/17 19:55 Immature Gran % (Auto) 0.50 % (0.001-0.429) H 02/18/17 19:55 Immature Gran # (Auto) 0.04 K/mm3 (0.000-0.0310) H 02/18/17 19:55 Neutrophils % 63.5 % (42-75.0) 02/18/17 19:55 Lymphocytes % 25.2 % (20-51) 02/18/17 19:55 Monocytes % 8.8 % (0.0-9) 02/18/17 19:55 Eosinophils % 1.6 % (0.0-3.0) 02/18/17 19:55 Basophils % 0.4 % (0.0-1.0) 02/18/17 19:55 Nucleated RBC % 0.0 k/mm3 (0-1) 02/18/17 19:55 Neutrophils # 4.7 K/mm3 (1.3-6.0) 02/18/17 19:55 Lymphocytes # 1.9 k/mm3 (1.5-3.5) 02/18/17 19:55 Monocytes # 0.7 k/mm3 (0.0-1.0) 02/18/17 19:55 Eosinophils # 0.1 k/mm3 (0.0-0.7) 02/18/17 19:55 Absolute Basophils 0.0 k/mm3 (0.0-0.1) 02/18/17 19:55 PT 10.0 Seconds (9.4-11.4) 02/18/17 19:55 INR (Anticoag Therapy) 0.96 INR (0.90-1.10) 02/18/17 19:55 PTT (Rachel) 24.4 Seconds (24-32) 02/18/17 19:55 Sodium 137 mmol/L (132-142) 02/18/17 19:55 Plasma Sodium 139 mmol/L (130-142) 02/18/17 19:55 Potassium 4.0 mmol/L (3.4-4.6) 02/18/17 19:55 Chloride 102 mmol/L (97-106) 02/18/17 19:55 Carbon Dioxide 21.6 mmol/L (24-32.6) L 02/18/17 19:55 Anion Gap 17.4 mmol/L (6.8-13.8) H 02/18/17 19:55 BUN 15 mg/dL (6-23) 02/18/17 19:55 Creatinine 0.92 mg/dL (0.4-1.4) 02/18/17 19:55 Est GFR (Non-Af Amer) 93 mL/min (60-130) 02/18/17 19:55 BUN/Creatinine Ratio 16.3 (9.0-21.6) 02/18/17 19:55 Random Glucose 240 mg/dL (70-110) H D 02/18/17 19:55 Calcium 8.7 mg/dL (7.9-10.9) 02/18/17 19:55 Calcium Adj for Albumin 8.9 mg/dL (8.4-10.2) 02/18/17 19:55 Magnesium 1.7 mg/dL (1.2-2.8) 02/18/17 19:55 Total Bilirubin 0.4 mg/dL (0.0-1.1) 02/18/17 19:55 AST 23 U/L (0-48) 02/18/17 19:55 ALT 45 U/L (19-67) 02/18/17 19:55 Alkaline Phosphatase 111 U/L (50-170) 02/18/17 19:55 Troponin I Less than 0.017 ng/ml (0.00-0.10) 02/18/17 19:55 Total Protein 6.6 gm/dL (6.2-8.2) 02/18/17 19:55 Albumin 3.4 gm/dl (3.4-5.0) 02/18/17 19:55 Assessment/Plan - Narrative Narrative: Chest pain- pt report of chest pain that began at 7pm and unresolved with nitro Nitro tab x3 given in ER. Nitro paste applied and pt continue to have chest pain with radiating pain to left arm Aspirin 81mg x3 taken at home On adm EKG- NSR and repeated EKG remain in NSR Troponin x 2 negative. pt stated he really don't want to be transfer since pain is unresolved Hypertension - on adm BP 109/63 May resume home dose of medications Continue to monitor vital signs CAD- pt with history of AZ and stents x4 Last stent placed 2016, pt was having recurrent chest pain. Continue with home dose crestor Diabetes- pt stated he was resume on metformin after he was seen by Dr Henao Accu-check ACHS Consistent carb diet Code status: Full DVT ppx- ambulate daily GI ppx- protonix - Assessment/Plan (1) Chest pain Problem: Acute QualifierTitle: Chest pain type: unspecified Qualified Code(s): R07.9 - Chest pain, unspecified (2) CAD (coronary artery disease) Problem: Chronic QualifierTitle: Coronary Disease-Associated Artery/Lesion type: [place] artery [place] vs. transplanted heart: [place] heart Associated angina: with unspecified angina Qualified Code(s): I25.119 - Atherosclerotic heart disease of [place] coronary artery with unspecified angina pectoris (3) Diabetes mellitus Problem: Chronic QualifierTitle: Diabetes mellitus type: type 2 Diabetes mellitus complication status: with hyperglycemia Diabetes mellitus mcfp insulin use: without mcfp use Qualified Code(s): E11.65 - Type 2 diabetes mellitus with hyperglycemia (4) Hypertension Problem: Chronic QualifierTitle: Hypertension type: essential hypertension (5) AZALIA (obstructive sleep apnea) Problem: Chronic <Med Henao - Last Filed: 02/19/17 07:46> Immunizations: IMMUNIZATION HX Immunizations Up to Date Yes History of Influenza Vaccine Yes Hx Pneumococcal Vaccination Yes Exam - Exam Vital Signs: Vital Signs - Last Taken Temp 36.0 C L 02/19/17 06:38 Pulse 65 02/19/17 06:38 Resp 18 02/19/17 06:38 BP 102/65 02/19/17 06:38 Pulse Ox 95 02/19/17 06:38 Diagnostic Studies: Laboratory Results WBC 7.4 K/mm3 (4.0-10.5) 02/18/17 19:55 RBC 4.58 M/mm3 (4.7-6.0) L 02/18/17 19:55 Hgb 13.4 gm/dL (13.5-18.0) L 02/18/17 19:55 Hct 39.9 % (42.0-52.0) L 02/18/17 19:55 MCV 87.1 fl (78-100) 02/18/17 19:55 MCH 29.3 pg (27-31) 02/18/17 19:55 MCHC 33.6 g/dl (32-36) 02/18/17 19:55 RDW 13.7 % (11.5-14.0) 02/18/17 19:55 Plt Count 215 K/mm3 (150-450) 02/18/17 19:55 MPV 8.9 fl (6.0-9.5) 02/18/17 19:55 Immature Gran % (Auto) 0.50 % (0.001-0.429) H 02/18/17 19:55 Immature Gran # (Auto) 0.04 K/mm3 (0.000-0.0310) H 02/18/17 19:55 Neutrophils % 63.5 % (42-75.0) 02/18/17 19:55 Lymphocytes % 25.2 % (20-51) 02/18/17 19:55 Monocytes % 8.8 % (0.0-9) 02/18/17 19:55 Eosinophils % 1.6 % (0.0-3.0) 02/18/17 19:55 Basophils % 0.4 % (0.0-1.0) 02/18/17 19:55 Nucleated RBC % 0.0 k/mm3 (0-1) 02/18/17 19:55 Neutrophils # 4.7 K/mm3 (1.3-6.0) 02/18/17 19:55 Lymphocytes # 1.9 k/mm3 (1.5-3.5) 02/18/17 19:55 Monocytes # 0.7 k/mm3 (0.0-1.0) 02/18/17 19:55 Eosinophils # 0.1 k/mm3 (0.0-0.7) 02/18/17 19:55 Absolute Basophils 0.0 k/mm3 (0.0-0.1) 02/18/17 19:55 PT 10.0 Seconds (9.4-11.4) 02/18/17 19:55 INR (Anticoag Therapy) 0.96 INR (0.90-1.10) 02/18/17 19:55 PTT (Rachel) 24.4 Seconds (24-32) 02/18/17 19:55 Sodium 137 mmol/L (132-142) 02/18/17 19:55 Plasma Sodium 139 mmol/L (130-142) 02/18/17 19:55 Potassium 4.0 mmol/L (3.4-4.6) 02/18/17 19:55 Chloride 102 mmol/L (97-106) 02/18/17 19:55 Carbon Dioxide 21.6 mmol/L (24-32.6) L 02/18/17 19:55 Anion Gap 17.4 mmol/L (6.8-13.8) H 02/18/17 19:55 BUN 15 mg/dL (6-23) 02/18/17 19:55 Creatinine 0.92 mg/dL (0.4-1.4) 02/18/17 19:55 Est GFR (Non-Af Amer) 93 mL/min (60-130) 02/18/17 19:55 BUN/Creatinine Ratio 16.3 (9.0-21.6) 02/18/17 19:55 Random Glucose 240 mg/dL (70-110) H D 02/18/17 19:55 Calcium 8.7 mg/dL (7.9-10.9) 02/18/17 19:55 Calcium Adj for Albumin 8.9 mg/dL (8.4-10.2) 02/18/17 19:55 Magnesium 1.7 mg/dL (1.2-2.8) 02/18/17 19:55 Total Bilirubin 0.4 mg/dL (0.0-1.1) 02/18/17 19:55 AST 23 U/L (0-48) 02/18/17 19:55 ALT 45 U/L (19-67) 02/18/17 19:55 Alkaline Phosphatase 111 U/L (50-170) 02/18/17 19:55 Troponin I Less than 0.017 ng/ml (0.00-0.10) 02/19/17 01:40 Total Protein 6.6 gm/dL (6.2-8.2) 02/18/17 19:55 Albumin 3.4 gm/dl (3.4-5.0) 02/18/17 19:55 Assessment/Plan - Narrative Narrative: The patient is under a lot of stress at the present time. On the other hand, his admitting symptoms are exactly like those of his previous heart attacks, except the addition of headache on this occasion. Early this morning, he had the chest pain recur, and was given tylenol, which did very little for him. The pain gradually went away over two hours. The patient related to me that in the ER, two sublingual ntg decreased his chest pain markedly, but that the addition of nitropaste took it away completely. I directed all of our nurse practitioner hospitalist care for this patient. I have place a call to the managed care director at [facility], where he normally sees Dr. Prasad, and am waiting for a return call.
[2017-02-19] MEDS ORDERED: VENLAFAXINE HCL 100 MG PO SCH (01:45)
[2017-02-19] MEDS ORDERED: rOPINIRole HCL 0.5 MG TABLET PO SCH (02:00)
[2017-02-19] MEDS ORDERED: NORTRIPTYLINE HCL 25 MG CAPSULE PO SCH (02:00)
[2017-02-19] MEDS ORDERED: ACETAMINOPHEN 500 MG TABLET PO PRN (02:02)
[2017-02-19] MEDS ORDERED: NITROGLYCERIN 0.4 MG/TAB BTL SL PRN (02:30)
[2017-02-19 06:42] VITALS: BP 102/65
--- NOTE | 2017-02-19 08:40 | DS ---
(1) Unstable angina Problem: Acute (2) Headache Problem: Acute Qualifiers: Headache type: unspecified Headache chronicity pattern: unspecified pattern Intractability: not intractable Qualified Code(s): R51 - Headache (3) Adjustment reaction Problem: Acute Qualifiers: Adjustment disorder type: with anxious mood Qualified Code(s): F43.22 - Adjustment disorder with anxiety (4) Stented coronary artery Problem: Chronic (5) CAD (coronary artery disease) Problem: Chronic Qualifiers: Coronary Disease-Associated Artery/Lesion type: [place] artery [place] vs. transplanted heart: [place] heart Associated angina: with unspecified angina Qualified Code(s): I25.119 - Atherosclerotic heart disease of [place] coronary artery with unspecified angina pectoris (6) Diabetes mellitus Problem: Chronic Qualifiers: Diabetes mellitus type: type 2 Diabetes mellitus complication status: with hyperglycemia Diabetes mellitus halfway insulin use: without termite control representative use Qualified Code(s): E11.65 - Type 2 diabetes mellitus with hyperglycemia (7) Anxiety Problem: Chronic (8) Eosinophilic fasciitis Problem: Chronic (9) Hypertension Problem: Chronic Qualifiers: Hypertension type: essential hypertension Qualified Code(s): I10 - Essential (primary) hypertension (10) Morbid obesity Problem: Chronic (11) AZALIA (obstructive sleep apnea) Problem: Chronic Description of Stay: Sequential EKGs and troponins nondiagnostic. Chest pain recurred in the leasing associate hours today. Lasted 2 hours. Went away slowly on its own. Ok now. Spoke with Dr. Harris at [facility] who agreed to accept him today in ambulance transfer for further study. Procedures Performed: none Discharge Disposition: [facility] Disposition: Other health care facility Condition: Good Discharge Activity: Activity as tolerated Discharge Diet: Consistent carbs Referrals: Med Henao MD [Primary Care Provider] - Problem Oriented Discharge Instructions to Patient/Family: Angina Pectoris, [id number] Prescriptions (Any new or edited meds): metFORMIN HCL [Glucophage] 500 mg PO BIDWM #1 tablet Complete Home Medications List: Complete Home Medication List: Venlafaxine HCl 100 mg PO HS 06/25/12 rOPINIRole HCL [Requip] 0.5 mg PO HS 06/25/12 Ascorbic Acid [Vitamin C] 500 mg PO DAILY 08/15/12 Aspirin [Aspirin Enteric Coated] 81 mg PO DAILY #0 tablet. 08/18/13 Cholecalciferol [Vitamin D] 1,000 unit PO DAILY 03/08/14 Rosuvastatin Calcium [Crestor] 40 mg PO DAILY 04/06/14 Diltiazem HCl [Cardizem Cd] 180 mg PO DAILY 10/04/15 Nitroglycerin 0.4 mg SL PRN 11/10/15 Acetaminophen [Tylenol] 1,000 mg PO QID PRN 07/15/16 Enalapril Maleate [Vasotec] 5 mg PO DAILY 07/15/16 Fenofibrate 160 mg PO DAILY 02/18/17 Nortriptyline HCl [Pamelor] 25 mg PO HS 02/18/17 Wheat Dextrin [Benefiber] 1 tbs PO BID PRN 02/18/17 metFORMIN HCL [Glucophage] 500 mg PO BIDWM #1 tablet 02/19/17
[2017-02-19] MEDS ORDERED: CHOLECALCIFEROL 400 UNIT TABLET PO SCH (09:00)
[2017-02-19] MEDS ORDERED: CHOLECALCIFEROL 1,000 UNIT CAPSULE PO SCH (09:00)
[2017-02-19] MEDS ORDERED: ROSUVASTATIN CALCIUM 20 MG TABLET PO SCH ×2 (09:00→21:00)
[2017-02-19] MEDS ORDERED: ASPIRIN 81 MG TABLET.DR PO SCH (09:00)
[2017-02-19] MEDS ORDERED: ASCORBIC ACID 500 MG TABLET PO SCH (09:00)
[2017-02-19] MEDS ORDERED: FAMOTIDINE 20 MG TABLET PO SCH (09:00)
[2017-02-19] MEDS ORDERED: ENALAPRIL MALEATE 5 MG TABLET PO SCH (09:00)
[2017-02-19] MEDS ORDERED: DILTIAZEM HCL 180 MG CAP.SR.24H PO SCH (09:00)
[2017-02-19] MEDS ORDERED: FENOFIBRATE,MICRONIZED 134 MG CAPSULE PO SCH (09:00)
== END 2017-02-19 09:40 | disposition short-term general hospital (02) ==
LOC: ER 19:25 → MS 23:35
PROVIDERS: ADMIT Nurse Practitioner; ATTEND Allergy & Immunology
DX: I25.110 Atherosclerotic heart disease of native coronary artery with unstable angina pectoris (principal); R51 Headache; F43.22 Adjustment disorder with anxiety; E11.65 Type 2 diabetes mellitus with hyperglycemia; M35.4 Diffuse (eosinophilic) fasciitis; I10 Essential (primary) hypertension; E66.01 Morbid (severe) obesity due to excess calories; Z68.39 Body mass index [BMI] 39.0-39.9, adult; G47.33 Obstructive sleep apnea (adult) (pediatric)
CPT/HCPCS: 36415; 71010; 80053; 83735; 84484; 85025; 85610; 85730; 93005; 94660; 99285; G0378

== ENCOUNTER 2017-02-26 21:08 | Emergency (ER) | payer BC, MEDICAID ==
--- NOTE | 2017-02-26 21:49 | ERNOTE ---
Medical Problem HPI - General Chief Complaint: General Assessment Time Seen by Provider: 02/26/17 21:20 Source: patient Exam Limitations: no limitations - Immun/Allergies/Home Medications Immunizations: IMMUNIZATION HX Immunizations Up to Date Yes History of Influenza Vaccine Yes Hx Pneumococcal Vaccination Yes Allergies/Adverse Reactions: Allergies sulfacetamide Allergy (Severe, Verified 02/26/17 21:28) convulsions amoxicillin trihydrate [From Augmentin] Allergy (Mild, Verified 02/26/17 21:28) Vomiting benzoin Allergy (Mild, Verified 02/26/17 21:28) Hives potassium clavulanate [From Augmentin] Allergy (Mild, Verified 02/26/17 21:28) Vomiting Influenza Virus Vaccines Allergy (Verified 02/26/17 21:28) sulfamethoxazole [From Bactrim] Allergy (Verified 02/26/17 21:28) trimethoprim [From Bactrim] Allergy (Verified 02/26/17 21:28) cephalexin [Cephalexin] Adverse Reaction (Mild, Verified 02/26/17 21:28) rash clindamycin HCl [From Cleocin] Adverse Reaction (Mild, Verified 02/26/17 21:28) rash levofloxacin [From Levaquin] Adverse Reaction (Mild, Verified 02/26/17 21:28) rash Home Medications: HOME MEDICATIONS Venlafaxine HCl 100 mg PO HS 06/25/12 [Last Taken 02/17/17] rOPINIRole HCL [Requip] 0.5 mg PO HS 06/25/12 [Last Taken 02/17/17] Ascorbic Acid [Vitamin C] 500 mg PO DAILY 08/15/12 [Last Taken 02/19/17] Aspirin [Aspirin Enteric Coated] 81 mg PO DAILY #0 tablet. 08/18/13 [Last Taken 02/19/17] Cholecalciferol [Vitamin D] 1,000 unit PO DAILY 03/08/14 [Last Taken 02/19/17] Rosuvastatin Calcium [Crestor] 40 mg PO DAILY 04/06/14 [Last Taken 02/18/17] Diltiazem HCl [Cardizem Cd] 180 mg PO DAILY 10/04/15 [Last Taken 02/19/17] Nitroglycerin 0.4 mg SL PRN 11/10/15 [Last Taken Unknown] Acetaminophen [Tylenol] 1,000 mg PO QID PRN 07/15/16 [Last Taken 02/17/17] Enalapril Maleate [Vasotec] 10 mg PO DAILY 07/15/16 [Last Taken 02/19/17] Nortriptyline HCl [Pamelor] 25 mg PO HS 02/18/17 [Last Taken Unknown] Wheat Dextrin [Benefiber] 1 tbs PO BID PRN 02/18/17 [Last Taken Unknown] metFORMIN HCL [Glucophage] 500 mg PO BIDWM #1 tablet 02/19/17 [Last Taken Unknown] Diltiazem HCl [Cartia Xt] 180 mg PO 02/26/17 [Last Taken Unknown] Fenofibrate 160 mg PO DAILY 02/26/17 [Last Taken Unknown] Sildenafil Citrate [Viagra] 100 mg PO PRN 02/26/17 [Last Taken Unknown] - History of Present History Narrative: Pt had onset of involuntary movements around 18:45 today. Pt was recently prescribed two new medications nortriptyline and fenofibrate. He has taken 2 nortriptyline at HS as prophylactic for cephalgia and took his first fenofibrate this evening. He believes he is having a reaction to the fenofibrate as this was his first dose. Timing: constant, getting worse Severity: mild, moderate Review of Systems - Review of Systems Constitutional: Absent: fever, chills EYE: Present: no symptoms reported ENT: Present: no symptoms reported Respiratory: Absent: shortness of breath, cough Cardiology: Absent: chest pain, palpitations Gastrointestinal/Abdominal: Absent: nausea, vomiting Genitourinary: Present: no symptoms reported Musculoskeletal: Present: See HPI Skin: Absent: rash Neurological: Present: See HPI, headache - x 1-2 weeks Endocrine: Present: other - increased blood sugar and was restarted on metformin Hematologic/Lymphatic: Present: no symptoms reported Psych: Present: no symptoms reported - Patient's Past Medical History Patient History - Medical: Anxiety, Diabetes Type 2, Headache, Obesity, Other Patient History - Cardiac/Respiratory: Hypertension, Myocardial Infarction Patient History - Cancer: No Hx of Cancer Patient History - Surgical Procedures: Cardiac stent Patient History - Other: AIDS - Family History Father Family History - Medical: Family History - Cardiac/Respiratory: Myocardial Infarction Mother Family History - Medical: No pertinent hx Family History - Cardiac/Respiratory: No pertinent hx - Social History Living Situations: significant other Abuse History: No History of abuse Psych History: Hx of Anxiety, Current tx/ever been on anti-depressants or anti- anxiety meds Smoking Status: Never smoker Do you dip or chew tobacco: No Alcohol Use: none Drug Use: none - Immunizations Immunizations Up to Date: Yes Hx Pneumococcal Vaccination: Yes History of Influenza Vaccine: Yes Physical Exam - Physical Exam General Appearance: Present: wd/wn, alert, anxious Head Exam: Present: normal inspection, no evidence of injury Eye Exam: Normal inspection: bilateral Neck: Present: nontender, supple Respiratory: Present: no respiratory distress, normal breath sounds, no accessory muscle use, lungs clear Cardiovascular/Chest: Present: regular rate, rhythm, no murmur Extremity Exam: Present: normal inspection, normal range of motion Neurological Exam: Present: alert, oriented, normal mood/affect, other - involuntary muscular movement in both upper and lower extremities Skin Exam: Present: warm/dry, other - bruises from recent IV starts and blood draws during recent hospital admission Lymphatic Exam: Present: no adenopathy ED Progress - Vital Signs Patient's Vital Signs:: I have reviewed the patient's vital signs. Vital Signs: Vital Signs 02/26/17 21:17 Temperature 36.4 C L Pulse Rate 87 Respiratory 24 H Rate Blood Pressure 112/77 O2 Sat by Pulse 98 Oximetry - Progress/Reassessment Chief Complaint: General Assessment Progress Note-Subjective: 02/27/17 00:42 having an occasional small twitch otherwise asymptomatic. Departure - Departure Clinical Impression: Dyskinesia, tardive Disposition: Home Follow Up Needed Condition: Good Instructions: Tardive Dyskinesia Additional Instructions: Take benadryl 50 mg every 6 hours for 24 - 48 hours. your dose in the ER was given at 10:20 pm. Discuss any remaining symptoms with your primary care doctor. Referrals: Med Henao MD [Primary Care Provider] -
[2017-02-26] MEDS ORDERED: diphenhydrAMINE HCL 50 MG/ML VIAL IV ONE (22:14)
[2017-02-26] MEDS ORDERED: diphenhydrAMINE HCL 50 MG/ML VIAL ONE (22:17)
[2017-02-27 00:47] VITALS: BP 137/76
== END 2017-02-27 00:56 | disposition home or self-care (01) ==
LOC: ER 21:08
DX: G24.01 Drug induced subacute dyskinesia (principal)

== ENCOUNTER 2017-07-06 13:13 | Emergency (ER) | payer MEDICARE, MEDICAID ==
[2017-07-06] MEDS ORDERED: HYDROcodone/ACETAMINOPHEN 1 EACH TABLET PO ONE (13:45)
--- NOTE | 2017-07-06 13:47 | ERNOTE ---
Upper Extremity HPI - Narrative Date of Service: 07/06/17 - General Extremities Pain Location: elbow: right Time Seen by Provider: 07/06/17 13:41 Source: patient, family, RN notes reviewed Exam Limitations: clinical condition - Immun/Allergies/Home Medications Immunizations: IMMUNIZATION HX Immunizations Up to Date Yes History of Influenza Vaccine Yes Hx Pneumococcal Vaccination No Allergies/Adverse Reactions: Allergies Allergy/AdvReac Type Severity Reaction Status Date / Time sulfacetamide Allergy Severe convulsions Verified 07/06/17 13:24 amoxicillin trihydrate Allergy Mild Vomiting Verified 07/06/17 13:24 [From Augmentin] benzoin Allergy Mild Hives Verified 07/06/17 13:24 potassium clavulanate Allergy Mild Vomiting Verified 07/06/17 13:24 [From Augmentin] Influenza Virus Vaccines Allergy Verified 07/06/17 13:24 sulfamethoxazole Allergy Verified 07/06/17 13:24 [From Bactrim] trimethoprim [From Bactrim] Allergy Verified 07/06/17 13:24 cephalexin [Cephalexin] AdvReac Mild rash Verified 07/06/17 13:24 clindamycin HCl AdvReac Mild rash Verified 07/06/17 13:24 [From Cleocin] levofloxacin [From Levaquin] AdvReac Mild rash Verified 07/06/17 13:24 nortriptyline AdvReac Verified 07/06/17 13:24 Home Medications: HOME MEDICATIONS Venlafaxine HCl 100 mg PO HS 06/25/12 [Last Taken 02/17/17] rOPINIRole HCL [Requip] 0.5 mg PO HS 06/25/12 [Last Taken 02/17/17] Ascorbic Acid [Vitamin C] 500 mg PO DAILY 08/15/12 [Last Taken 02/19/17] Aspirin [Aspirin Enteric Coated] 81 mg PO DAILY #0 tablet. 08/18/13 [Last Taken 02/19/17] Cholecalciferol [Vitamin D] 1,000 unit PO DAILY 03/08/14 [Last Taken 02/19/17] Rosuvastatin Calcium [Crestor] 40 mg PO DAILY 04/06/14 [Last Taken 02/18/17] Diltiazem HCl [Cardizem Cd] 180 mg PO DAILY 10/04/15 [Last Taken 02/19/17] Nitroglycerin 0.4 mg SL PRN 11/10/15 [Last Taken Unknown] Acetaminophen [Tylenol] 1,000 mg PO QID PRN 07/15/16 [Last Taken 02/17/17] Enalapril Maleate [Vasotec] 10 mg PO DAILY 07/15/16 [Last Taken 02/19/17] Wheat Dextrin [Benefiber] 1 tbs PO BID PRN 02/18/17 [Last Taken Unknown] metFORMIN HCL [Glucophage] 500 mg PO BIDWM #1 tablet 02/19/17 [Last Taken Unknown] Fenofibrate 160 mg PO DAILY 02/26/17 [Last Taken Unknown] Sildenafil Citrate [Viagra] 100 mg PO PRN 02/26/17 [Last Taken Unknown] HYDROcodone/ACETAMINOPHEN [[place] 5-325] 1 each PO Q6H PRN #20 tablet 07/06/17 [ Last Taken Unknown] - Pain Score Pain Score #1 Pain Score: 8 - right elbow - History of Present Illness Narrative: Edu is a 47 year old male who presents to the ER with c/o right lateral elbow pain s/p fall. states that he fell 3 feet down the stairs last night. no LOC. states that the right elbow did not begin to really hurt until overnight. no right shoulder pain. Occurred: yesterday Location of Incident: home Severity: severe Method of Injury: Reports: fell Reason for Fall: Reports: lost balance, tripped Loss of Consciousness: Reports: no loss of consciousness Modifying Factors - (Improves): Reports: immobilization Modifying Factors - (Worsens): Reports: movement Associated Symptoms: Reports: weakness, loss of power (rt arm). Denies: tingling, numbness distally, loss of feeling, loss of power (lt arm) Other Injuries: Reports: none Review of Systems - Review of Systems Constitutional: Present: no symptoms reported EYE: Present: no symptoms reported ENT: Present: no symptoms reported Respiratory: Present: no symptoms reported Cardiology: Present: no symptoms reported Gastrointestinal/Abdominal: Present: no symptoms reported Genitourinary: Present: no symptoms reported Musculoskeletal: Present: joint pain, joint swelling. Absent: neck pain Skin: Present: no symptoms reported Neurological: Present: no symptoms reported Endocrine: Present: no symptoms reported Hematologic/Lymphatic: Present: no symptoms reported Psych: Present: no symptoms reported All Other Systems: All systems neg except as marked - Patient's Past Medical History Patient History - Medical: Anxiety, Diabetes Type 2, Headache, Obesity, Other Patient History - Cardiac/Respiratory: Hypertension, Myocardial Infarction Patient History - Cancer: No Hx of Cancer Patient History - Surgical Procedures: Cardiac stent Patient History - Other: AIDS - Family History Father Family History - Medical: Family History - Cardiac/Respiratory: Myocardial Infarction Mother Family History - Medical: No pertinent hx Family History - Cardiac/Respiratory: No pertinent hx - Social History Living Situations: home Abuse History: No History of abuse Psych History: Hx of Anxiety, Current tx/ever been on anti-depressants or anti- anxiety meds Smoking Status: Never smoker Alcohol Use: none Drug Use: none - Immunizations Immunizations Up to Date: Yes Hx Pneumococcal Vaccination: No History of Influenza Vaccine: Yes Physical Exam - Physical Exam General Appearance: Present: alert, mild distress Head Exam: Present: normal inspection, no evidence of injury Eye Exam: Normal inspection: bilateral Ears, Nose, Throat: Present: normal ENT inspection Neck: Present: normal inspection, nontender Respiratory: Present: no respiratory distress, normal breath sounds, no accessory muscle use, chest nontender, lungs clear Cardiovascular/Chest: Present: regular rate, rhythm, normal peripheral pulses Gastrointestinal/Abdominal: Present: nontender, nondistended, soft Rectal Exam: Present: deferred Extremity Exam: Present: joint swelling - right elbow, other - right elbow: no bruising noted, elbow swollen, significantly painful to touch and with movement , right hand grasp weak. Skin Exam: Present: normal color, warm/dry ED Progress - Date and Time Seen: Date and Time: 07/06/17 14:07 spoke with MIKEY Perez (ortho) - discussed right lateral elbow pain, pain with hand grasp, no right shoulder pain. xray shows no acute fracture. alan recommends sling and call ortho on friday for f/u appt. - Vital Signs Vital Signs: Vital Signs 07/06/17 13:16 Temperature 36.5 C Pulse Rate 74 Respiratory 17 Rate Blood Pressure 133/87 O2 Sat by Pulse 95 Oximetry - X-Ray X-Ray #1 X-Ray: elbow - right Interpretation: Reviewed by me - interp by dr lou X-ray Comments: right elbow xrays shows no acute fracture. - Progress/Reassessment Chief Complaint: Upper Extremity Injury/Problem Departure Clinical Impression: Right elbow pain Fall Qualifiers: Encounter type: initial encounter Qualified Code(s): W19.XXXA - Unspecified fall, initial encounter - Departure Disposition: Home self-care Condition: Good Instructions: How to Use a Sling, Elbow Contusion, [id number] Additional Instructions: wear sling at all times. call ortho on friday for a follow up appt. Referrals: Med Henao MD [Primary Care Provider] - Prescriptions: HYDROcodone/ACETAMINOPHEN [[place] 5-325] 1 each PO Q6H PRN #20 tablet PRN Reason: Pain
[2017-07-06] MEDS ORDERED: HYDROcodone/ACETAMINOPHEN 1 EACH TABLET ONE (13:51)
[2017-07-06 18:09] VITALS: BP 129/78
== END 2017-07-06 14:23 | disposition home or self-care (01) ==
LOC: ER 13:13
DX: W10.9XXA Fall (on) (from) unspecified stairs and steps, initial encounter; I25.2 Old myocardial infarction; M25.521 Pain in right elbow; Z95.5 Presence of coronary angioplasty implant and graft